=== PATIENT | female | born 1965 ===

== ENCOUNTER 2017-05-02 18:32 | Emergency (ER) | payer OTHER ==
[2017-05-02 18:32] VITALS: BMI 42.3
--- NOTE | 2017-05-02 19:10 | C.PDOC ---
History Of Present Illness 51 year old female, whose PMHx includes HTN, Borderline DM, and Latent tuberculosis infection, presents to the ED for evaluation of cough productive of yellow-green sputum and shortness of breath which began yesterday. Patient also complains of chest tightness that worsens when she coughs. Patient states her shortness of breath is exacerbated when walking and talking. She also reports voice hoarseness and pain when swallowing both solids and liquids. She denies fever, chills, nausea, vomiting, back pain at this time. Time Seen by Provider: 05/02/17 19:08 Chief Complaint (Nursing): Shortness Of Breath History Per: Patient History/Exam Limitations: no limitations Onset/Duration Of Symptoms: Hrs Current Symptoms Are (Timing): Still Present Quality: Tightness Exacerbating Factor(s): Exertion Current Respiratory Medications: See Home Med List Associated Symptoms: Productive Cough. denies: Fever, Chills Additional History Per: Patient Past Medical History Reviewed: Historical Data, Nursing Documentation, Vital Signs Vital Signs: Last Vital Signs Temp 97.8 F 05/02/17 20:00 Pulse 83 05/02/17 20:40 Resp 12 05/02/17 20:40 BP 124/81 05/02/17 20:40 Pulse Ox 98 05/02/17 20:40 - Medical History PMH: Anemia (History of Thalassemia (Hgb A)), Arthritis, Bronchitis, Gastritis, HTN, Osteoporosis Denies: Chronic Kidney Disease Surgical History: Tonsillectomy - [facility] Procedures GAIT TRAINING/FUNCTIONAL AMBULATION TREATMENT (03/02/16) HOME MANAGEMENT TREATMENT USING ASSIST EQUIPMENT (03/02/16) INTRODUCE ANTI-INFLAM IN PERIPH NRV, PLEXI, PERC (02/29/16) INTRODUCE REGIONAL ANESTH IN PERIPH NRV, PLEXI, PERC (02/29/16) INTRODUCTION OF SERUM/TOX/VACCINE INTO MUSCLE, PERC APPROACH (03/02/16) OCCUPATIONAL THERAPY (02/20/15) PHYSICAL THERAPY NEC (03/18/15) RECREATIONAL THERAPY (02/20/15) RELEASE LEFT KNEE JOINT, PERCUTANEOUS ENDOSCOPIC APPROACH (02/29/16) REPLACEMENT OF LEFT KNEE JOINT WITH SYNTH SUB, OPEN APPROACH (02/29/16) THERAPEUTIC EXERCISE TREATMENT OF MUSCULOSK LOW BACK/LE (03/02/16) TOTAL KNEE REPLACEMENT (02/17/15) Family History: States: Unknown Family Hx - Social History Hx Tobacco Use: No Hx Alcohol Use: No Hx Substance Use: No - Immunization History Hx Tetanus Toxoid Vaccination: Yes Hx Influenza Vaccination: Yes Hx Pneumococcal Vaccination: Yes Review Of Systems Constitutional: Negative for: Fever, Chills Cardiovascular: Positive for: Other (chest tightness ) Respiratory: Positive for: Cough, Shortness of Breath, Sputum Physical Exam - Physical Exam Appears: Non-toxic, No Acute Distress (respiratory ) Skin: Normal Color, Warm, No Cyanotic Head: Atraumatic, Normacephalic Eye(s): bilateral: Normal Inspection Ear(s): Bilateral: Normal Nose: Normal, No Discharge Oral Mucosa: Moist Throat: Normal, No Erythema, No Exudate Neck: Supple Lymphatic: No Other (enlargement of lymph nodes ) Chest: Symmetrical, No Deformity, No Tenderness Cardiovascular: Rhythm Regular, No Murmur, No JVD, Other (S1 and S2 within normal limits ) Respiratory: Normal Breath Sounds, No Rales, Rhonchi (sonorous ) Gastrointestinal/Abdominal: Soft, No Tenderness, No Guarding, No Rebound, Other (protuberant) Extremity: Normal ROM, Capillary Refill (less than 2 seconds ) Neurological/Psych: Oriented x3, Normal Speech, Normal Cognition, Other (no focal deficits ) Gait: Steady ED Course And Treatment - Laboratory Results Result Diagrams: 05/02/17 19:43 05/02/17 19:43 ECG: Interpreted By Me, Viewed By Me Interpretation Of ECG: Normal Sinus Rhythm at 81bpm. Normal axis. Intervals within normal limits. 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 No prior EKG available for comparison. Rate From EC - Radiology CXR: Interpreted by Me, Viewed By Me CXR Interpretation: Yes: Other (no active pulmonary disease) Medical Decision Making Medical Decision Making: Impression: Bronchitis vs upper respiratory infection Plan: * bloodwork * EKG * CXR * Prednisone PO * reassess and disposition Progress: Bloodwork, EKG, CXR ordered and reviewed. Prednisone PO administered. CXR is negative. Lab results show mildly elevated white blood cell count. Influenza/Group A Strep Test results are negative. Electrolyte count is unremarkable aside from mild hypokalemia. Disposition - Disposition Referrals: [facility] [Outside] Disposition: HOME/ ROUTINE Disposition Time: 20:52 Condition: GOOD Additional Instructions: Take zithromax as prescribed,prednisone as prescribed Prescriptions: Azithromycin [Zithromax] 250 mg PO DAILY #4 tab predniSONE [predniSONE Tab] 20 mg PO DAILY #5 tab Forms: [facility] (Amharic), Work Excuse - Clinical Impression Clinical Impression: Bronchitis - Scribe Statement The provider has reviewed the documentation as recorded by the Scribe (Coty Vilchis) Provider Attestation: All medical record entries made by the Scribe were at my direction and personally dictated by me. I have reviewed the chart and agree that the record accurately reflects my personal performance of the history, physical exam, medical decision making, and the department course for this patient. I have also personally directed, reviewed, and agree with the discharge instructions and disposition.
[2017-05-02 19:46] LABS: BASO # 0.1 K/uL (0.0-0.2); BASO % 0.6 % (0.0-2.0); EOS # 0.3 K/uL (0.0-0.7); EOS % 3.1 % (0.0-4.0); HEMATOCRIT 40.3 % (34.0-47.0); LYMPH % 27.8 % (20.0-40.0); MEAN CELL VOLUME 87.2 fL (81.0-99.0); MEAN CORPUSCULAR HEMOGLOBIN 28.9 pg (27.0-31.0); MEAN CORPUSCULAR HGB CONC 33.2 g/dL (33.0-37.0); MEAN PLATELET VOLUME 7.8 fL (7.2-11.7); MONO # 0.6 K/uL (0.0-0.8); MONO % 5.6 % (0.0-10.0); RED CELL DISTRIBUTION WIDTH 14.2 % (11.5-14.5); WHITE BLOOD COUNT 10.9 K/uL (4.8-10.8)
[2017-05-02 19:58] LABS: ALB/GLOB RATIO 1.5 (1.0-2.1); ALKALINE PHOSPHATASE 73 U/L (38-126); ALT/SGPT 46 U/L (9-52); AST/SGOT 26 U/L (14-36); BILIRUBIN,TOTAL 0.5 mg/dL (0.2-1.3); BLOOD UREA NITROGEN 12 mg/dL (7-17); CALCIUM 8.3 mg/dl (8.6-10.4); CARBON DIOXIDE 27 mmol/L (22-30); CHLORIDE 103 mmol/L (98-107); GFR AFRICAN-AMERICAN > 60; GLUCOSE,RANDOM 104 mg/dL (65-105); POTASSIUM 3.3 mmol/L (3.6-5.2); SODIUM 138 mmol/L (132-148); TOTAL PROTEIN 6.8 g/dL (6.3-8.3)
[2017-05-02 20:01] VITALS: TEMP 97.8
[2017-05-02 20:42] VITALS: BP 124/81; PULSE 83; RESP 12; O2SAT 98
[2017-05-02] MEDS ORDERED: Albuterol-Ipratrop 3 mg / 0.5 (3 ml) UD INH STA (20:48)
[2017-05-02] MEDS ORDERED: Albuterol-Ipratrop 3 mg / 0.5 (3 ml) UD ONE ×2 (20:50→21:10)
--- NOTE | 2017-05-03 07:03 | RAD ---
PROCEDURE: CHEST RADIOGRAPH, 1 VIEW HISTORY: SOB COMPARISON: Chest radiographs dated 02/11/2017. FINDINGS: LUNGS: Clear. PLEURA: No pneumothorax or pleural fluid seen. CARDIOVASCULAR: Normal. OSSEOUS STRUCTURES: No significant abnormalities. VISUALIZED UPPER ABDOMEN: Normal. OTHER FINDINGS: None. IMPRESSION: No interval acute cardiopulmonary disease appreciated.
--- NOTE | 2017-05-04 08:32 | CARD ---
APPROVED REPORT EKG Measurement Heart [id number] <Conclusion> Normal sinus rhythm Inferior infarct, age undetermined Abnormal ECG
== END 2017-05-02 21:11 | disposition home or self-care (01) ==
LOC: C.ER 18:32
DX: J40 Bronchitis, not specified as acute or chronic (principal)

== ENCOUNTER 2017-09-03 21:00 | Emergency (ER) | payer OTHER ==
[2017-09-03 21:01] VITALS: BMI 42.3
[2017-09-03 21:11] VITALS: BP 157/97; PULSE 79; RESP 20; TEMP 97.8; O2SAT 99
--- NOTE | 2017-09-03 21:49 | C.PDOC ---
History Of Present Illness 52 y/o female with lateral malleolus pain intermittent x 2 weeks with intermediate swelling; c/o throbbing pain that radiates up leg, worse after standing. taking ibuprofen with little improvement, no fever or chills. seen by ortho with neg fx and seen by pmd. no cp or sob. no fever or chills. Time Seen by Provider: 09/03/17 21:24 Chief Complaint (Nursing): Lower Extremity Problem/Injury History Per: Patient History/Exam Limitations: no limitations Onset/Duration Of Symptoms: Days Current Symptoms Are (Timing): Still Present Severity: Moderate Additional History Per: Family Past Medical History Reviewed: Historical Data, Nursing Documentation, Vital Signs Vital Signs: Last Vital Signs Temp 97.8 F 09/03/17 21:06 Pulse 79 09/03/17 21:06 Resp 20 09/03/17 21:06 BP 157/97 H 09/03/17 21:06 Pulse Ox 99 09/03/17 22:03 - Medical History PMH: Anemia (History of Thalassemia (Hgb A)), Arthritis, Bronchitis, Gastritis, HTN, Osteoporosis Denies: Chronic Kidney Disease Surgical History: Tonsillectomy - [facility] Procedures GAIT TRAINING/FUNCTIONAL AMBULATION TREATMENT (03/02/16) HOME MANAGEMENT TREATMENT USING ASSIST EQUIPMENT (03/02/16) INTRODUCE ANTI-INFLAM IN PERIPH NRV, PLEXI, PERC (02/29/16) INTRODUCE REGIONAL ANESTH IN PERIPH NRV, PLEXI, PERC (02/29/16) INTRODUCTION OF SERUM/TOX/VACCINE INTO MUSCLE, PERC APPROACH (03/02/16) OCCUPATIONAL THERAPY (02/20/15) PHYSICAL THERAPY NEC (03/18/15) RECREATIONAL THERAPY (02/20/15) RELEASE LEFT KNEE JOINT, PERCUTANEOUS ENDOSCOPIC APPROACH (02/29/16) REPLACEMENT OF LEFT KNEE JOINT WITH SYNTH SUB, OPEN APPROACH (02/29/16) THERAPEUTIC EXERCISE TREATMENT OF MUSCULOSK LOW BACK/LE (03/02/16) TOTAL KNEE REPLACEMENT (02/17/15) Family History: States: Unknown Family Hx - Social History Hx Tobacco Use: No Hx Alcohol Use: No Hx Substance Use: No - Immunization History Hx Tetanus Toxoid Vaccination: Yes Hx Influenza Vaccination: Yes Hx Pneumococcal Vaccination: Yes Review Of Systems Eyes: Negative for: Pain Cardiovascular: Negative for: Chest Pain Respiratory: Negative for: Cough Musculoskeletal: Positive for: Foot Pain (left) Skin: Negative for: Rash Neurological: Negative for: Weakness, Numbness Physical Exam - Physical Exam Appears: Non-toxic, No Acute Distress Skin: Warm, Dry Head: Atraumatic, Normacephalic Extremity: Normal ROM, Tenderness (left lateral malleolus, no erythema or warmth , no metatsarsal tenderness. rom of ankle, no calf tenderness or swelling. neg homans sign. +2 dp pulse) ED Course And Treatment O2 Sat by Pulse Oximetry: 99 Medical Decision Making Medical Decision Makin52 y/o female with lateral malleolus pain intermittent x 2 weeks with intermediate swelling; c/o throbbing pain that radiates up leg, worse after standing. taking ibuprofen with little improvement, no fever or chills. seen by ortho with neg fx and seen by pmd. no cp or sob. no fever or chills. Disposition Counseled Patient/Family Regarding: Diagnosis, Need For Followup, Rx Given - Disposition Referrals: Monica Frye DPM [Staff Provider] - Disposition: HOME/ ROUTINE Disposition Time: 22:01 Condition: GOOD Additional Instructions: Please elevate foot whenever possible. Cold compresses on top of foot/ankle area several times a day. No weight bearing. Follow up with Dr Frye or [facility] podiatry clinic this week. Instructions: Ankle Sprain (DC) Forms: General Discharge Instructions, [facility] (Armenian), Work Excuse - Clinical Impression Clinical Impression: Ankle pain, left
== END 2017-09-03 22:15 | disposition home or self-care (01) ==
LOC: C.ER 21:00
DX: M25.572 Pain in left ankle and joints of left foot (principal)

== ENCOUNTER 2017-11-15 15:55 | Emergency (ER) | payer OTHER ==
[2017-11-15 16:18] VITALS: BMI 39.6
[2017-11-15 16:22] VITALS: TEMP 98.1
--- NOTE | 2017-11-15 17:50 | C.PDOC ---
Time Seen by Provider: 11/15/17 16:30 Chief Complaint (Nursing): Lower Extremity Problem/Injury Past Medical History Vital Signs: Last Vital Signs Temp 98.1 F 11/15/17 16:18 Pulse 81 11/15/17 16:18 Resp 16 11/15/17 16:18 BP 158/98 H 11/15/17 16:18 Pulse Ox 97 11/15/17 16:18 - Medical History PMH: Anemia (History of Thalassemia (Hgb A)), Arthritis, Bronchitis, Gastritis, HTN, Osteoporosis Denies: Chronic Kidney Disease Surgical History: Tonsillectomy - [facility] Procedures GAIT TRAINING/FUNCTIONAL AMBULATION TREATMENT (03/02/16) HOME MANAGEMENT TREATMENT USING ASSIST EQUIPMENT (03/02/16) INTRODUCE ANTI-INFLAM IN PERIPH NRV, PLEXI, PERC (02/29/16) INTRODUCE REGIONAL ANESTH IN PERIPH NRV, PLEXI, PERC (02/29/16) INTRODUCTION OF SERUM/TOX/VACCINE INTO MUSCLE, PERC APPROACH (03/02/16) OCCUPATIONAL THERAPY (02/20/15) PHYSICAL THERAPY NEC (03/18/15) RECREATIONAL THERAPY (02/20/15) RELEASE LEFT KNEE JOINT, PERCUTANEOUS ENDOSCOPIC APPROACH (02/29/16) REPLACEMENT OF LEFT KNEE JOINT WITH SYNTH SUB, OPEN APPROACH (02/29/16) THERAPEUTIC EXERCISE TREATMENT OF MUSCULOSK LOW BACK/LE (03/02/16) TOTAL KNEE REPLACEMENT (02/17/15) Family History: States: Unknown Family Hx - Social History Hx Tobacco Use: No Hx Alcohol Use: No Hx Substance Use: No - Immunization History Hx Tetanus Toxoid Vaccination: Yes Hx Influenza Vaccination: Yes Hx Pneumococcal Vaccination: Yes (2014) ED Course And Treatment O2 Sat by Pulse Oximetry: 97 Disposition Counseled Patient/Family Regarding: Studies Performed, Diagnosis, Need For Followup, Rx Given - Disposition Disposition: HOME/ ROUTINE Disposition Time: 17:48 Condition: STABLE Additional Instructions: follow up with your doctor or employee health within 2 days for reevaluation call to make an appointment take medications as prescribed return to ER if symptoms worsens or progress preliminary reading of xray demonstrates no broken bones Prescriptions: Naproxen [Naprosyn] 500 mg PO BID PRN #16 tab PRN Reason: Pain, Moderate (4-7) traMADol [Ultram] 50 mg PO TID PRN #12 tab PRN Reason: Pain, Moderate (4-7) Instructions: Contusion (DC) Forms: [facility] (Khmer), General Discharge Instructions - Clinical Impression Clinical Impression: Contusion, Contusion, knee
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
[2017-11-15 18:11] VITALS: BP 147/90; PULSE 69; RESP 18; O2SAT 100
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
== END 2017-11-15 18:10 | disposition home or self-care (01) ==
LOC: C.ER 15:55
DX: S80.02XA Contusion of left knee, initial encounter (principal); S80.01XA Contusion of right knee, initial encounter; W22.8XXA Striking against or struck by other objects, initial encounter; Y92.239 Unspecified place in hospital as the place of occurrence of the external cause; Y99.0 Civilian activity done for income or pay

== ENCOUNTER 2018-04-12 07:38 | Emergency (ER) | payer OTHER ==
[2018-04-12 07:39] VITALS: BMI 39.6
[2018-04-12] MEDS ORDERED: Sodium Chloride 0.9% 1,000 ML IV ONE (07:53)
[2018-04-12] MEDS ORDERED: Sodium Chloride 0.9% 1,000 ML ONE (08:06)
[2018-04-12 08:08] VITALS: O2SAT 97
--- NOTE | 2018-04-12 08:28 | C.PDOC ---
History Of Present Illness 52 yo female w/PMHx of HTN, OA, GERD, hx of intermittent headaches, come in for evaluation of left sided headache gradually developed since this AM. Pt reports, headache is left sided, throbbing, worse with changing position. Pt admits, similar sx in past " usually resolved with sugar but not this time". Pt complaint with HTN medication, last dose- last night. Pt is employee of [employer], " was able to drive myself to work, started shift but headache worsen, took [employer]". Otherwise, pt denies fever, chills, recent illness, denies worse headache of life, visual changes, focal deficits, neck pain, CP, SOB, dyspnea, diaphoresis, palpitation, abd. pain, N/V/D, back pain, UTI sx. Ambulatory in ED with stable gait, not in any apparent distress. Time Seen by Provider: 04/12/18 07:50 Chief Complaint (Nursing): High Blood Pressure History Per: Patient Past Medical History Reviewed: Historical Data, Nursing Documentation, Vital Signs Vital Signs: Last Vital Signs Temp 98.5 F 04/12/18 07:42 Pulse 77 04/12/18 08:08 Resp 17 04/12/18 08:08 BP 146/82 04/12/18 08:08 Pulse Ox 97 04/12/18 08:08 - Medical History PMH: Anemia (History of Thalassemia (Hgb A)), Arthritis, Bronchitis, Gastritis, HTN, Osteoporosis Denies: CVA, Chronic Kidney Disease Surgical History: Tonsillectomy - [facility] Procedures GAIT TRAINING/FUNCTIONAL AMBULATION TREATMENT (03/02/16) HOME MANAGEMENT TREATMENT USING ASSIST EQUIPMENT (03/02/16) INTRODUCE ANTI-INFLAM IN PERIPH NRV, PLEXI, PERC (02/29/16) INTRODUCE REGIONAL ANESTH IN PERIPH NRV, PLEXI, PERC (02/29/16) INTRODUCTION OF SERUM/TOX/VACCINE INTO MUSCLE, PERC APPROACH (03/02/16) OCCUPATIONAL THERAPY (02/20/15) PHYSICAL THERAPY NEC (03/18/15) RECREATIONAL THERAPY (02/20/15) RELEASE LEFT KNEE JOINT, PERCUTANEOUS ENDOSCOPIC APPROACH (02/29/16) REPLACEMENT OF LEFT KNEE JOINT WITH SYNTH SUB, OPEN APPROACH (02/29/16) THERAPEUTIC EXERCISE TREATMENT OF MUSCULOSK LOW BACK/LE (03/02/16) TOTAL KNEE REPLACEMENT (02/17/15) Family History: States: Unknown Family Hx - Social History Hx Tobacco Use: No Hx Alcohol Use: No Hx Substance Use: No - Immunization History Hx Tetanus Toxoid Vaccination: Yes Hx Influenza Vaccination: Yes Hx Pneumococcal Vaccination: Yes (2014) Review Of Systems Except As Marked, All Systems Reviewed And Found Negative. Constitutional: Negative for: Fever, Chills Eyes: Negative for: Vision Change ENT: Negative for: Ear Discharge, Nose Discharge, Throat Pain, Throat Swelling Cardiovascular: Negative for: Chest Pain, Palpitations, Orthopnea, Edema, Light Headedness Respiratory: Negative for: Cough, Shortness of Breath, Sputum, Wheezing Gastrointestinal: Negative for: Nausea, Vomiting, Abdominal Pain, Diarrhea Genitourinary: Negative for: Dysuria, Incontinence Musculoskeletal: Negative for: Neck Pain, Back Pain Skin: Negative for: Rash Neurological: Positive for: Headache. Negative for: Weakness, Numbness, Altered Mental Status, Dizziness Physical Exam - Physical Exam Appears: Well, Non-toxic, No Acute Distress Skin: Normal Color, Warm, Dry, No Rash Head: Atraumatic, Normacephalic Eye(s): bilateral: PERRL Ear(s): Bilateral: Normal Nose: No Flaring, No Discharge Oral Mucosa: Moist, No Drooling Tongue: Normal Appearing Lips: Normal Appearing Throat: No Erythema, No Drooling Neck: Normal ROM, Trachea Midline, Supple Cardiovascular: Rhythm Regular, No Murmur, No JVD, Other ((-) carotid bruits B/L) Respiratory: No Decreased Breath Sounds, No Accessory Muscle Use, No Stridor, No Wheezing Gastrointestinal/Abdominal: Soft, No Tenderness, No Distention, No Guarding Back: No CVA Tenderness Extremity: Normal ROM, No Pedal Edema, No Deformity, No Swelling Neurological/Psych: Oriented x3, Normal Speech ED Course And Treatment - Laboratory Results Result Diagrams: 04/12/18 08:20 04/12/18 08:20 Lab Interpretation: Normal ECG: Interpreted By Me, Viewed By Me ECG Rhythm: Sinus Rhythm ECG Interpretation: Normal Interpretation Of ECG: SR@77/min, LAD, no acute T wave or ST-T changes. O2 Sat by Pulse Oximetry: 97 Pulse Ox Interpretation: Normal - Radiology CXR: Interpreted by Me, Viewed By Me, Read By Radiologist CXR Interpretation: Yes: No Acute Disease - CT Scan/US CT head w/o contrast Other Rad Studies (CT/US): Radiology Report Reviewed CT/US Interpretation: pprover : Sade Trujillo MD. Approver2 : Report Date : 04/12/2018 10:04:16. My Comment : . This report is currently processing and HAS NOT BEEN OFFICIALLY SIGNED BY THE PHYSICIAN - ESTIMATED TIME OF APPROVAL IS 04/12/2018 10:26. Date of service: 04/12/2018. PROCEDURE: CT HEAD WITHOUT CONTRAST. HISTORY: headache, dizziness, HTN. COMPARISON: Noncontrast head CT performed 03/22/14. TECHNIQUE: Axial computed tomography images were obtained through the head/brain without intravenous contrast. Radiation dose: Total exam DLP = 1092.99 mGy-cm. This CT exam was performed using one or more of the following dose reduction techniques: Automated exposure control, adjustment of the mA and/or kV according to patient size, and/or use of iterative reconstruction te chnique. FINDINGS: HEMORRHAGE: No intracranial hemorrhage. BRAIN: No mass effect or edema. Mild scattered white matter hypodensities, which are nonspecific, but often seen with chronic microvascular ischemic disease. Please note that MRI with diffusion imaging is more sensitive in the detection of acute ischemic event. VENTRICLES: No hydrocephalus. CALVARIUM: Unremarkable. PARANASAL SINUSES: Unremarkable as visualized. No significant inflammatory changes. MASTOID AIR CELLS: Unremarkable as visualized. No inflammatory changes. OTHER FINDINGS: None. IMPRESSION: No acute intracranial pathology identified. Incidental findings as above. Progress Note: Pt was OBS in ED for 3hours and remained stable. On re-eal, pt reports mod improvemnet in headache. Afebrile, hemodynamicaly stable. Non- toxic. Neurologicaly intact. Blood work review and appears without acute abnormalities. CT head- no acute abnormalities. Case discussed, resuilts review with and discharge with outpt f/u recommend now. Results review and discussed with patient. ref. to F/u with PMD in 1 days for re-eavl. return to ED if any worsening or new changes. Disposition Counseled Patient/Family Regarding: Studies Performed, Diagnosis, Need For Followup, Rx Given - Disposition Referrals: Audi Lewis MD [Staff Provider] - Disposition: HOME/ ROUTINE Disposition Time: 10:25 Condition: STABLE Additional Instructions: Encourage fluids Follow up with PMD in 1-2 days for re-evaluation, MRI of head return to Ed if any worsening or new changes. Prescriptions: Acetaminophen/Butalbital/Caf [Fioricet] 1 tab PO BID #7 tab Instructions: Headache, Adult (DC) Forms: [facility] (Kyrgyz), Work Excuse - Clinical Impression Clinical Impression: Headache
--- NOTE | 2018-04-12 08:30 | RAD ---
Date of service: 04/12/2018 HISTORY: chest pain COMPARISON: 05/02/2017 TECHNIQUE: Chest PA and lateral FINDINGS: LUNGS: No consolidation. Lung volumes lower limits of normal. PLEURA: No significant pleural effusion identified. No pneumothorax apparent. CARDIOVASCULAR: There is presence of aortic atherosclerotic calcification on x-ray. Minimal [id number] Probable top-normal pulmonary venous status. OSSEOUS STRUCTURES: Thoracic spondylosis. VISUALIZED UPPER ABDOMEN: Normal. OTHER FINDINGS: None. IMPRESSION: Minimal [id number]-[id number] Probable top-normal pulmonary venous status.. No consolidation pleural effusion or pneumothorax.
[2018-04-12 08:34] LABS: INR 0.9; PROTHROMBIN TIME 10.3 SECONDS (9.7-12.2)
[2018-04-12 08:38] LABS: BASO # 0.1 K/uL (0.0-0.2); BASO % 0.9 % (0.0-2.0); EOS # 0.3 K/uL (0.0-0.7); EOS % 4.6 % (0.0-4.0); HEMOGLOBIN 13.6 g/dL (11.0-16.0); LYMPH # 2.1 K/uL (1.0-4.3); LYMPH % 30.9 % (20.0-40.0); MEAN CELL VOLUME 88.1 fL (81.0-99.0); MEAN CORPUSCULAR HEMOGLOBIN 29.5 pg (27.0-31.0); MEAN CORPUSCULAR HGB CONC 33.5 g/dL (33.0-37.0); MEAN PLATELET VOLUME 8.2 fL (7.2-11.7); MONO # 0.3 K/uL (0.0-0.8); MONO % 4.8 % (0.0-10.0); NEUT % 58.8 % (50.0-75.0); NRBC % 0.1 % (0.0-2.0); RBC 4.59 Mil/uL (3.80-5.20); RED CELL DISTRIBUTION WIDTH 13.6 % (11.5-14.5); WHITE BLOOD COUNT 6.9 K/uL (4.8-10.8)
[2018-04-12 08:41] LABS: ALB/GLOB RATIO 1.5 (1.0-2.1); ALBUMIN 4.4 g/dL (3.5-5.0); ALT/SGPT 38 U/L (9-52); AST/SGOT 27 U/L (14-36); BLOOD UREA NITROGEN 16 mg/dL (7-17); CALCIUM 9.7 mg/dl (8.6-10.4); GFR NON-AFRICAN AMERICAN > 60
[2018-04-12 08:52] LABS: B-TYPE NATRIURETIC PEPTIDE 33.7 pg/mL (0-900)
[2018-04-12 08:59] LABS: SQUAMOUS EPITHIAL 2 /hpf (0-5); URINE BACTERIA OCC (<OCC); URINE BILIRUBIN NEGATIVE (NEGATIVE); URINE BLOOD NEGATIVE (NEGATIVE); URINE CLARITY Clear (Clear); URINE COLOR Yellow (YELLOW); URINE GLUCOSE (UA) NORMAL (Normal); URINE LEUKOCYTE ESTERASE NEG Leu/uL (Negative); URINE PROTEIN NEGATIVE (NEGATIVE); URINE UROBILINOGEN NORMAL mg/dL (0.2-1.0)
[2018-04-12 09:56] VITALS: BP 133/83; PULSE 75; RESP 16
--- NOTE | 2018-04-12 10:25 | CT ---
Date of service: 04/12/2018 PROCEDURE: CT HEAD WITHOUT CONTRAST. HISTORY: headache, dizziness, HTN COMPARISON: Noncontrast head CT performed 03/22/14 TECHNIQUE: Axial computed tomography images were obtained through the head/brain without intravenous contrast. Radiation dose: Total exam DLP = 1092.99 mGy-cm. This CT exam was performed using one or more of the following dose reduction techniques: Automated exposure control, adjustment of the mA and/or kV according to patient size, and/or use of iterative reconstruction technique. FINDINGS: HEMORRHAGE: No intracranial hemorrhage. BRAIN: No mass effect or edema. Mild scattered white matter hypodensities, which are nonspecific, but often seen with chronic microvascular ischemic disease. Please note that MRI with diffusion imaging is more sensitive in the detection of acute ischemic event. VENTRICLES: No hydrocephalus. CALVARIUM: Unremarkable. PARANASAL SINUSES: Unremarkable as visualized. No significant inflammatory changes. MASTOID AIR CELLS: Unremarkable as visualized. No inflammatory changes. OTHER FINDINGS: None. IMPRESSION: No acute intracranial pathology identified. Incidental findings as above.
[2018-04-12 10:49] VITALS: TEMP 98.3
--- NOTE | 2018-04-16 17:44 | CARD ---
APPROVED REPORT Date of service: 04/12/2018 EKG Measurement Heart [id number] <Conclusion> Normal sinus rhythm Minimal voltage criteria for LVH, may be normal variant Borderline ECG
== END 2018-04-12 11:02 | disposition home or self-care (01) ==
LOC: C.ER 07:38
DX: R51 Headache (principal)
CPT/HCPCS: 70450; 71046; 80053; 81001; 83880; 84484; 85025; 85610; 85730; 96360; 99285; J7030

== ENCOUNTER 2018-09-18 10:10 | Emergency (ER) | payer OTHER ==
[2018-09-18 10:10] VITALS: BMI 39.6
[2018-09-18 10:42] VITALS: RESP 18; TEMP 99.1
[2018-09-18] MEDS ORDERED: Sodium Chloride 0.9% 1,000 ML IV ONE (11:18)
[2018-09-18 11:40] LABS: BASO % 0.3 % (0.0-2.0); EOS % 0.2 % (0.0-4.0); HEMOGLOBIN 14.5 g/dL (11.0-16.0); LYMPH % 15.7 % (20.0-40.0); MEAN CELL VOLUME 89.1 fL (81.0-99.0); MEAN CORPUSCULAR HEMOGLOBIN 29.9 pg (27.0-31.0); MEAN CORPUSCULAR HGB CONC 33.6 g/dL (33.0-37.0); MEAN PLATELET VOLUME 8.5 fL (7.2-11.7); MONO # 0.4 K/uL (0.0-0.8); MONO % 6.3 % (0.0-10.0); NEUT # 4.8 K/uL (1.8-7.0); NEUT % 77.5 % (50.0-75.0); NRBC % 0.1 % (0.0-2.0); RBC 4.84 Mil/uL (3.80-5.20); RED CELL DISTRIBUTION WIDTH 14.1 % (11.5-14.5); WHITE BLOOD COUNT 6.2 K/uL (4.8-10.8)
[2018-09-18] MEDS ORDERED: Sodium Chloride 0.9% 1,000 ML ONE (11:43)
[2018-09-18 11:47] LABS: INR 1.1; PROTHROMBIN TIME 12.1 SECONDS (9.7-12.2)
[2018-09-18 11:49] LABS: ALBUMIN 4.3 g/dL (3.5-5.0); BLOOD UREA NITROGEN 16 mg/dL (7-17); CALCIUM 8.9 mg/dl (8.6-10.4); GFR NON-AFRICAN AMERICAN > 60
[2018-09-18 11:50] LABS: ALB/GLOB RATIO 1.5 (1.0-2.1); ALT/SGPT 38 U/L (9-52); AST/SGOT 40 U/L (14-36); LIPASE 46 U/L (23-300); SQUAMOUS EPITHIAL 8 /hpf (0-5); URINE BACTERIA RARE (<OCC); URINE BILIRUBIN 1+ (NEGATIVE); URINE BLOOD 1+ (NEGATIVE); URINE CLARITY Hazy (Clear); URINE COLOR Amber (YELLOW); URINE GLUCOSE (UA) NORMAL (Normal); URINE PROTEIN 1+ mg/dL (NEGATIVE)
[2018-09-18 11:52] LABS: URINE LEUKOCYTE ESTERASE 2+ Leu/uL (Negative)
--- NOTE | 2018-09-18 13:51 | C.PDOC ---
History Of Present Illness 53 year old female presents to the ED for evaluation of gradual onset of nausea and diffuse abdominal cramping pain which developed over the past few days. Patient states her symptoms began after she went to eat "outside." Patient re ports having a few episodes of non-bilious vomiting and watery diarrhea yesterday, and felt better at night. This morning, her symptoms returned after she tried eating breakfast. Patient denies fever, chills, headache, dizziness, chest pain. Time Seen by Provider: 09/18/18 10:54 Chief Complaint (Nursing): GI Problem History Per: Patient History/Exam Limitations: no limitations Onset/Duration Of Symptoms: Days, Gradual Current Symptoms Are (Timing): Still Present Location Of Pain/Discomfort: Diffuse Quality Of Discomfort: Cramping, "Pain" Associated Symptoms: Vomiting, Diarrhea. denies: Fever, Chills, Chest Pain Last Bowel Movement: Today Additional History Per: Patient Abnormal Vaginal Bleeding: No Past Medical History Reviewed: Historical Data, Nursing Documentation, Vital Signs Vital Signs: Last Vital Signs Temp 99.1 F 09/18/18 10:33 Pulse 83 09/18/18 10:33 Resp 18 09/18/18 10:33 BP 132/87 09/18/18 10:33 Pulse Ox 98 09/18/18 10:33 - Medical History PMH: Anemia (History of Thalassemia (Hgb A)), Arthritis, Bronchitis, Gastritis, HTN, Osteoporosis Denies: CVA, Chronic Kidney Disease Surgical History: Tonsillectomy - [facility] Procedures GAIT TRAINING/FUNCTIONAL AMBULATION TREATMENT (03/02/16) HOME MANAGEMENT TREATMENT USING ASSIST EQUIPMENT (03/02/16) INTRODUCE ANTI-INFLAM IN PERIPH NRV, PLEXI, PERC (02/29/16) INTRODUCE REGIONAL ANESTH IN PERIPH NRV, PLEXI, PERC (02/29/16) INTRODUCTION OF SERUM/TOX/VACCINE INTO MUSCLE, PERC APPROACH (03/02/16) OCCUPATIONAL THERAPY (02/20/15) PHYSICAL THERAPY NEC (03/18/15) RECREATIONAL THERAPY (02/20/15) RELEASE LEFT KNEE JOINT, PERCUTANEOUS ENDOSCOPIC APPROACH (02/29/16) REPLACEMENT OF LEFT KNEE JOINT WITH SYNTH SUB, OPEN APPROACH (02/29/16) THERAPEUTIC EXERCISE TREATMENT OF MUSCULOSK LOW BACK/LE (03/02/16) TOTAL KNEE REPLACEMENT (02/17/15) Family History: States: Unknown Family Hx - Social History Hx Tobacco Use: No Hx Alcohol Use: No Hx Substance Use: No - Immunization History Hx Tetanus Toxoid Vaccination: Yes Hx Influenza Vaccination: Yes (02/2018) Hx Pneumococcal Vaccination: Yes (02/2015) Review Of Systems Constitutional: Negative for: Fever, Chills Cardiovascular: Negative for: Chest Pain Gastrointestinal: Positive for: Vomiting, Abdominal Pain (diffuse ), Diarrhea Neurological: Negative for: Headache, Dizziness Physical Exam - Physical Exam Appears: Non-toxic, No Acute Distress Skin: Normal Color, Warm, Dry Head: Atraumatic, Normacephalic Eye(s): bilateral: Normal Inspection Oral Mucosa: Moist Neck: Supple Chest: Symmetrical, No Deformity, No Tenderness Cardiovascular: Rhythm Regular, No Murmur Respiratory: Normal Breath Sounds, No Rales, No Rhonchi, No Wheezing Gastrointestinal/Abdominal: Soft, Tenderness (mild, epigastric ), No Guarding, No Rebound Extremity: Normal ROM, Capillary Refill (less than 2 seconds ) Neurological/Psych: Normal Speech, Normal Cognition ED Course And Treatment - Laboratory Results Result Diagrams: 09/18/18 11:32 09/18/18 11:32 Lab Results: PT 12.1 SECONDS (9.7-12.2) 09/18/18 11:32 INR 1.1 09/18/18 11:32 APTT 38 SECONDS (21-34) H 09/18/18 11:32 Total Bilirubin 0.5 mg/dL (0.2-1.3) 09/18/18 11:32 AST 40 U/L (14-36) H D 09/18/18 11:32 ALT 38 U/L (9-52) 09/18/18 11:32 Alkaline Phosphatase 72 U/L (38-126) 09/18/18 11:32 Total Protein 7.2 g/dL (6.3-8.3) 09/18/18 11:32 Albumin 4.3 g/dL (3.5-5.0) 09/18/18 11:32 Globulin 2.9 gm/dL (2.2-3.9) 09/18/18 11:32 Albumin/Globulin Ratio 1.5 (1.0-2.1) 09/18/18 11:32 Lipase 46 U/L (23-300) 09/18/18 11:32 Urine Color Taylor (YELLOW) 09/18/18 11:32 Urine Clarity Hazy (Clear) 09/18/18 11:32 Urine pH 5.0 (5.0-8.0) 09/18/18 11:32 Ur Specific Opdyke 1.032 (1.003-1.030) H 09/18/18 11:32 Urine Protein 1+ mg/dL (NEGATIVE) H 09/18/18 11:32 Urine Glucose (UA) Normal mg/dL (Normal) 09/18/18 11:32 Urine Ketones Trace mg/dL (NEGATIVE) 09/18/18 11:32 Urine Blood 1+ (NEGATIVE) H 09/18/18 11:32 Urine Nitrate Negative (NEGATIVE) 09/18/18 11:32 Urine Bilirubin 1+ (NEGATIVE) H 09/18/18 11:32 Urine Urobilinogen 2.0 mg/dL (0.2-1.0) H 09/18/18 11:32 Ur Leukocyte Esterase 2+ Amilcar/uL (Negative) H 09/18/18 11:32 Urine WBC (Auto) 26 /hpf (0-5) H 09/18/18 11:32 Urine RBC (Auto) 8 /hpf (0-3) H 09/18/18 11:32 Ur Squamous Epith Cells 8 /hpf (0-5) H 09/18/18 11:32 Urine Bacteria Rare (<OCC) 09/18/18 11:32 Hyaline Casts 3-5 /lpf (0-2) H 09/18/18 11:32 Lab Interpretation: No Acute Changes O2 Sat by Pulse Oximetry: 98 Pulse Ox Interpretation: Normal Progress Note: Bloodwork and urinalysis ordered and reviewed. Pepcid IVP, Zofran IVP, Protonix IVP, and IV Fluids given. On re-eval, pt is afebrile, hemodynamicaly stable. Non-toxic. Pt reports, mod improvement in sx. ENT: no acute findings. Lungs: CTA B/L, BS equal B/L. Abd: benign, (-) guarding, (-) rebound, (-) localized tenderness. Back: (-) CVA tenderness. Blood work review and appears normal. UA (+) UTI. Pt received Abx empirically, UCx- sent to lab. Pt has clinical findings c/w abd. pain, N/V/D, r/o viral illness, UTI. Pt advised. ref. to F/u with PMD in 2-3 days for re-eavl. return to ED if any worsening or new changes. Disposition Counseled Patient/Family Regarding: Studies Performed, Diagnosis, Need For Followup, Rx Given - Disposition Referrals: Audi Lewis MD [Staff Provider] - Disposition: HOME/ ROUTINE Disposition Time: 14:09 Condition: STABLE Additional Instructions: Encourage fluids Diet restriction for 1 week take medication as prescribed Follow up with PMD in 2-3 days for re-evaluation. Return to ED if any worsening or new changes. Prescriptions: Cefpodoxime [Vantin] 400 mg PO BID #28 tab Famotidine [Pepcid] 20 mg PO BID #10 tab Instructions: Urinary Tract Infection, Adult (DC), Nausea and Vomiting, Adult (DC), Viral Gastroenteritis, Adult (DC) Forms: [facility] (Citizen Of [place]), Work Excuse - Clinical Impression Clinical Impression: Abdominal pain, UTI (urinary tract infection), Nausea & vomiting, Diarrhea - PA / CLINICAL PHARMACY SPECIALIST / Resident Statement MD/DO has reviewed & agrees with the documentation as recorded. - Scribe Statement The provider has reviewed the documentation as recorded by the Scribe (Coty Vilchis) All medical record entries made by the Scribe were at my direction and personall y dictated by me. I have reviewed the chart and agree that the record accurately reflects my personal performance of the history, physical exam, medical decision making, and the department course for this patient. I have also personally directed, reviewed, and agree with the discharge instructions and disposition.
[2018-09-18] MEDS ORDERED: Cefepime IV 2 gm in Dextrose 2 GM/100 ML BAG IVPB STA (14:00)
[2018-09-18] MEDS ORDERED: Cefepime IV 2 gm in Dextrose 2 GM/100 ML BAG IVPB ONE (14:15)
[2018-09-18 14:48] VITALS: BP 110/76; PULSE 65
[2018-09-18 15:16] VITALS: O2SAT 98
== END 2018-09-18 16:45 | disposition home or self-care (01) ==
LOC: C.ER 10:10
DX: N39.0 Urinary tract infection, site not specified (principal); R10.13 Epigastric pain; R11.2 Nausea with vomiting, unspecified; R19.7 Diarrhea, unspecified
CPT/HCPCS: 80053; 81001; 83690; 85025; 85610; 85730; 87086; 96361; 96374; 96375; 99284; C9113; J0692; J2405; J7030

== ENCOUNTER 2018-11-08 06:03 | Day surgery (SDC) | payer OTHER | END 2018-11-08 10:26 | disposition home or self-care (01) | LOC: C.ENDO 06:03 | DX: R10.13 Epigastric pain (principal); Z12.11 Encounter for screening for malignant neoplasm of colon ==